=== PATIENT | female | born 1960 | race Caucasian/White ===

== ENCOUNTER → 2016-07-29 | Outpatient (CLI) | payer OTHER ==
[~2016-07-29] MED LIST: ASPI325T32 PO; CALC-656 PO; ESTR1TAB24 PO; MULT-974 PO; OMEG1CAP74 PO; OXYC-202 PO; OXYC-272 PO; SIMV80TA3 PO
--- OUTSIDE RECORDS SUMMARY | 2016-07-29 09:45 | XMS REPORT | Continuity of Care Document ---
Author Author [facility] Organization [facility] Address Unknown Phone Unavailable Allergies Active Description Code Type Severity Reaction Onset Reported/Identified Relationship to Patient Clinical Status Yes No Known Drug Allergies [id number] Drug Allergy Unknown N/ A 05/19/2010 Medications Problems Date Dx Coded Attending Type Code Diagnosis Diagnosed By 05/16/2014 ROCIO RAYA, OSCAR Arrieta Ot V76.12 06/02/2014 ROCIO RAYA, OSCAR Arrieta Ot V76.12 11/17/2014 ROCIO RAYA, OSCAR Arrieta Ot 625.8 11/17/2014 ROCIO RAYA, OSCAR Arrieta Ot 626.8 11/19/2014 ROCIO RAYA, OSCAR Arrieta Ot 625.8 11/19/2014 ROCIO RAYA, OSCAR Arrieta Ot 626.8 11/19/2014 ROCIO RAYA, OSCAR Arrieta Ot 625.8 11/19/2014 ROCIO RAYA, OSCAR Arrieta Ot 626.8 11/29/2014 ROCIO RAYA, OSCAR Arrieta Ot 285.9 11/29/2014 ROCIO RAYA, OSCAR Arrieta Ot 625.8 11/29/2014 ROCIO RAYA, OSCAR Arrieta Ot 626.8 11/29/2014 ROCIO RAYA, OSCAR Arrieta Ot V72.63 11/29/2014 ROCIO RAYA, OSCAR Arrieta Ot V74.8 01/02/2015 ROCIO RAYA, OSCAR Arrieta Ot 625.8 01/02/2015 ROCIO RAYA, OSCAR Arrieta Ot 626.8 06/26/2015 ROCIO RAYA, OSCAR Arrieta Ot V76.12 06/26/2015 ROCIO RAYA, OSCAR Arrieta Ot V76.12 06/26/2015 ROCIO RAYA, OSCAR Arrieta Ot 625.8 06/26/2015 ROCIO RAYA, OSCAR Arrieta Ot 626.8 06/26/2015 ROCIO RAYA, OSCAR Arrieta Ot 285.9 06/26/2015 ROCIO RAYA, OSCAR Arrieta Ot 625.8 06/26/2015 ROCIO RAYA, OSCAR Arrieta Ot 626.8 06/26/2015 ROCIO RAYA, OSCAR Arrieta Ot V72.63 06/26/2015 ROCIO RAYA, OSCAR Arrieta Ot V74.8 07/13/2015 ROCIO RAYA, OSCAR Arrieta Ot Z12.31 07/15/2015 ROCIO RAYA, OSCAR Arrieta Ot N85.00 07/15/2015 ROCIO RAYA, OSCAR Arrieta Ot N95.0 08/03/2015 ROCIO RAYA, OSCAR Arrieta Ot N95.0 08/03/2015 ROCIO RAYA, OSCAR Arrieta Ot Z01.812 08/03/2015 ROCIO RAYA, OSCAR Arrieta Ot Z11.2 Procedures Results Encounters ACCT No. Visit Date/Time Discharge Status Pt. Type Provider Facility Loc./Unit Complaint [id number] 07/15/2015 10:50:00 2015 16:20:00 DIS Outpatient OSCAR CHAN MD [facility] [id number] 11/14/2014 12:29:00 2014 23:59:59 CLS Outpatient OSCAR CHAN MD [facility] [id number] 11/13/2014 11:49:00 2014 23:59:59 CLS Outpatient OSCAR CHAN MD [facility] PREOP [id number] 05/16/2014 12:41:00 2013 23:59:59 CLS Outpatient OSCAR CHAN MD [facility] RAD [id number] 05/10/2013 09:53:00 2012 23:59:59 CLS Outpatient OSCAR CHAN MD [facility] RAD [id number] 07/13/2015 14:09:00 ACT Outpatient OSCAR CHAN MD [facility] PREOP [id number] 06/26/2015 10:03:00 ACT Outpatient OSCAR CHAN MD [facility] RAD
--- NOTE | 2016-07-29 18:59 | Diagnostic Imaging Report ---
Digital mammogram bilateral screening. This study was compared to the prior exams of 06/26/2015, 05/16/2014, 05/10/2013, and 05/04/2012. At this time, there are no current complaints. The current study was also evaluated with a Computer Aided Detection (CAD) system. FINDINGS: The fibroglandular tissue in both breasts is heterogeneously dense. This does limit the sensitivity of this exam. Overall, there does not appear to have been any significant change when compared to the prior study. No primary or secondary sign of malignancy is noted. IMPRESSION: There is no radiographic evidence for malignancy. ACR BI-RADS Category 1: Negative. Result letter will be mailed to the patient. Note: At least 10% of breast cancer is not imaged by mammography. Dictated by: Dictated on workstation # [id number]
== END ==
LOC: RAD 09:41
PROVIDERS: ATTEND Obstetrics & Gynecology
DX: Z12.31 Encounter for screening mammogram for malignant neoplasm of breast (principal)
CPT/HCPCS: 77067

== ENCOUNTER → 2017-08-11 | Outpatient (CLI) | payer OTHER ==
--- NOTE | 2017-08-11 16:23 | Diagnostic Imaging Report ---
Indication: Routine screening. Comparison is made with prior study of 07/29/2016 and 06/26/2015. Both breasts remain heterogeneously dense, limiting sensitivity of mammography. The parenchymal pattern is stable. No dominant mass or malignant-appearing microcalcifications are seen. There are benign calcifications bilaterally. Axillae are unremarkable. Impression: BI-RADS category 2 No mammographic features suspicious for malignancy are identified. ACR BI-RADS Category 2: Benign findings. Result letter will be mailed to the patient. Note: At least 10% of breast cancer is not imaged by mammography. Dictated on workstation # [id number]
== END ==
LOC: RAD 10:49
PROVIDERS: ATTEND Obstetrics & Gynecology
DX: Z12.31 Encounter for screening mammogram for malignant neoplasm of breast (principal)
CPT/HCPCS: 77067

== ENCOUNTER → 2018-08-13 | Outpatient (CLI) | payer OTHER ==
[~2018-08-13] MED LIST changes: -OXYC-202 PO; +OXYC1TAB12 PO
--- NOTE | 2018-08-13 10:06 | Diagnostic Imaging Report ---
INDICATION: Routine screening. COMPARISON: 08/11/2017 and 07/29/2016. TECHNIQUE: 2D and 3D bilateral screening mammography was performed with CAD. FINDINGS: Scattered fibroglandular densities are identified bilaterally. The parenchymal pattern is stable. No mass or malignant appearing microcalcifications are seen. The axillae are unremarkable. IMPRESSION: No mammographic features suspicious for malignancy are identified. ACR BI-RADS Category 1: Negative. Result letter will be mailed to the patient. Note: At least 10% of breast cancer is not imaged by mammography. Dictated by: Dictated on workstation # [id number]
== END ==
LOC: RAD 07:47
PROVIDERS: ATTEND Obstetrics & Gynecology
DX: Z12.31 Encounter for screening mammogram for malignant neoplasm of breast (principal)
CPT/HCPCS: 77067

== ENCOUNTER → 2019-08-16 | Outpatient (CLI) | payer OTHER ==
--- NOTE | 2019-08-16 09:34 | Diagnostic Imaging Report ---
INDICATION: Routine screening. Comparison is made with prior mammogram from 08/13/2018 and 08/11/2017. 2-D and 3-D bilateral screening mammography was performed with a Computer Aided Detection (CAD) system. 3-D tomosynthesis was also performed and reviewed. FINDINGS: Both breasts are heterogeneously dense, limiting the sensitivity of mammography. The parenchymal pattern is stable. No mass or malignant appearing microcalcifications are seen. There are benign calcifications noted. Axillae are unremarkable. IMPRESSION: No mammographic features suspicious for malignancy are identified. ACR BI-RADS Category 2: Benign findings. Result letter will be mailed to the patient. Note: At least 10% of breast cancer is not imaged by mammography. Dictated by: Dictated on workstation # [id number]
== END ==
LOC: RAD 08:04
PROVIDERS: ATTEND Obstetrics & Gynecology
DX: Z12.31 Encounter for screening mammogram for malignant neoplasm of breast (principal)
CPT/HCPCS: 77067

== ENCOUNTER → 2020-08-21 | Outpatient (CLI) | payer OTHER ==
--- NOTE | 2020-08-21 11:37 | Diagnostic Imaging Report ---
INDICATION: Routine screening. COMPARISON is made with prior mammograms from 08/16/2019 and 08/13/2018. 2-D and 3-D bilateral screening mammography was performed with CAD. Both breasts are heterogeneously dense, limiting the sensitivity of mammography. The overall parenchymal pattern is stable. No mass or malignant appearing microcalcifications are seen. There are benign calcifications present. The axillae are unremarkable. IMPRESSION: BI-RADS Category 2. No mammographic features suspicious for malignancy are identified. ACR BI-RADS Category 2: Benign findings. Result letter will be mailed to the patient. Note: At least 10% of breast cancer is not imaged by mammography. Dictated by: Dictated on workstation # [id number]
== END ==
LOC: RAD 08:26
PROVIDERS: ATTEND Obstetrics & Gynecology
DX: Z12.31 Encounter for screening mammogram for malignant neoplasm of breast (principal)
CPT/HCPCS: 77063; 77067

== ENCOUNTER → 2021-08-24 | Outpatient (CLI) | payer BC, OTHER ==
--- NOTE | 2021-08-24 12:35 | Diagnostic Imaging Report ---
INDICATION: Routine screening. COMPARISON: Mammograms from 08/21/2020 and 08/16/2019. TECHNIQUE: 2D and 3D bilateral screening mammography was performed with CAD. FINDINGS: Both breasts are heterogeneously dense, limiting the sensitivity of mammography. The parenchymal pattern is stable. No mass or malignant-appearing microcalcifications are seen. The axillae are unremarkable. IMPRESSION: No mammographic features suspicious for malignancy are identified. ACR BI-RADS Category 1: Negative. Result letter will be mailed to the patient. Note: At least 10% of breast cancer is not imaged by mammography. Dictated by: Dictated on workstation # [id number]
== END ==
LOC: RAD 07:45
PROVIDERS: ATTEND Obstetrics & Gynecology
DX: Z12.31 Encounter for screening mammogram for malignant neoplasm of breast (principal)
CPT/HCPCS: 77063; 77067

== ENCOUNTER → 2022-10-25 | Outpatient (CLI) | payer BC ==
--- NOTE | 2022-10-25 11:44 | Diagnostic Imaging Report ---
INDICATION: Routine screening. COMPARISON: 08/24/2021 and 08/21/2020. TECHNIQUE: 2D and 3D bilateral screening mammography was performed with CAD. FINDINGS: Both breasts are heterogeneously dense, limiting the sensitivity of mammography. The parenchymal pattern is stable. There are benign calcifications present. No mass or malignant-appearing microcalcifications are seen. The axillae are unremarkable. IMPRESSION: No mammographic features suspicious for malignancy are identified. ACR BI-RADS Category 2: Benign findings. Result letter will be mailed to the patient. Note: At least 10% of breast cancer is not imaged by mammography. Dictated by: Dictated on workstation # [id number]
== END ==
LOC: RAD 08:52
PROVIDERS: ATTEND Obstetrics & Gynecology
DX: Z12.31 Encounter for screening mammogram for malignant neoplasm of breast (principal)
CPT/HCPCS: 77063; 77067